=== PATIENT | female | born 1990 | race Caucasian/White ===

== ENCOUNTER 2016-09-18 17:18 | Emergency (ER) | payer SELFPAY ==
[~2016-09-18] VITALS: Ht 165.1 cm; Wt 76.0 kg
[~2016-09-18 17:18] MED LIST: IBUP800T PO; ONDA4TAB7 PO; OXYC-302 PO; PNV11TAB PO
[2016-09-18] MEDS ORDERED: SODIUM CHLORIDE FLUSH 10ML SYR IVF ONE (18:30)
[2016-09-18] MEDS ORDERED: LORazepam 2 MG/ML, 1ML IVPush ONE (18:30)
[2016-09-18 19:02] LABS: HEMOGLOBIN 13.6 g/dL (11.7-16.4)
[2016-09-18 19:14] LABS: ASPARTATE AMINO TRANSFERASE 7 U/L (15-37); BLOOD UREA NITROGEN 10 mg/dL (7-18)
[2016-09-18 19:19] LABS: IS PT STATUS REG ER OR PRE ER? YES
[2016-09-18] MEDS ORDERED: DIAZEPAM 5 MG TABLET PO ONE (20:30)
[2016-09-18] MEDS ORDERED: KETOROLAC 30 MG/1 ML IM ONE (20:30)
[2016-09-18] MEDS ORDERED: DIAZEPAM 5 MG TABLET ONE (20:38)
[2016-09-18] MEDS ORDERED: KETOROLAC 30 MG/1 ML ONE (20:38)
[2016-09-18 21:35] VITALS: BP 101/50
== END 2016-09-18 21:37 | disposition home or self-care (01) ==
LOC: ED 21:29
DX: R55 Syncope and collapse (principal); S30.0XXA Contusion of lower back and pelvis, initial encounter; R53.1 Weakness; W10.9XXA Fall (on) (from) unspecified stairs and steps, initial encounter; Y93.89 Activity, other specified; Y99.8 Other external cause status; Y92.89 Other specified places as the place of occurrence of the external cause
CPT/HCPCS: 36415; 72110; 72220; 80053; 84484; 84703; 85025; 93005; 96372; 99285; J1885

== ENCOUNTER 2018-03-28 16:51 | Emergency (ER) | payer MEDICAID ==
[~2018-03-28] VITALS: Ht 165.1 cm; Wt 60.0 kg
[~2018-03-28 16:51] MED LIST changes: +IBUP-1223 PO; -IBUP800T PO
[2018-03-28 17:30] VITALS: BP 126/83
[2018-03-28 17:34] LABS: BASOPHILS # (AUTO) 0.03 x10^3/uL (0-0.1); BASOPHILS % (AUTO) 0 % (0-1); EOSINOPHILS # (AUTO) 0.06 x10^3/uL (0-0.4); EOSINOPHILS % (AUTO) 1 % (1-7); LYMPHOCYTES # (AUTO) 2.67 x10^3/uL (1-3.4); LYMPHOCYTES % (AUTO) 38 % (22-44); MD NO; MEAN CORPUSCULAR HEMOGLOBIN 28.9 pg (27.0-34.8); MEAN CORPUSCULAR HGB CONC 33.1 g/dL (32.4-35.8); MEAN CORPUSCULAR VOLUME 87.3 fL (80-100); MEAN PLATELET VOLUME 8.3 fL (7.4-10.4); MONOCYTES # (AUTO) 0.44 x10^3/uL (0.2-0.8); MONOCYTES % (AUTO) 6 % (2-9); NEUTROPHILS # (AUTO) 3.76 x10^3/uL (1.8-6.8); NEUTROPHILS % (AUTO) 54 % (42-75); PLATELET COUNT 266 x10^3/uL (130-400); RED BLOOD COUNT 4.65 x10^6/uL (3.82-5.3); RED CELL DISTRIBUTION WIDTH 14.2 % (9.6-15.2)
[2018-03-28 17:43] LABS: ANION GAP 10 mmol/L (5-15); CALCIUM 8.7 mg/dL (8.5-10.1); CHLORIDE 110 mmol/L (98-107); CREATININE 0.97 mg/dL (0.55-1.02); SALICYLATE LEVEL 4.7 mg/dL (2.8-20.0)
[2018-03-28 17:44] LABS: ACETAMINOPHEN < 2 mcg/mL (10-30)
== END 2018-03-28 18:22 | disposition left against medical advice (07) ==
LOC: ED 18:15
DX: F43.0 Acute stress reaction (principal); Z86.73 Personal history of transient ischemic attack (TIA), and cerebral infarction without residual deficits
CPT/HCPCS: 36415; 80048; 80307; 80329; 82040; 82140; 85025; 99284; G0480

== ENCOUNTER 2018-04-27 09:11 | Emergency (ER) | payer MEDICAID ==
[~2018-04-27] VITALS: Ht 165.1 cm; Wt 65.0 kg
[2018-04-27] MEDS ORDERED: OMNIPAQUE 350 MG/ML, 100ML BOTTLE ONE (10:29)
[2018-04-27 10:37] LABS: BASOPHILS # (AUTO) 0.02 x10^3/uL (0-0.1); BASOPHILS % (AUTO) 0 % (0-1); EOSINOPHILS # (AUTO) 0.08 x10^3/uL (0-0.4); EOSINOPHILS % (AUTO) 1 % (1-7); LYMPHOCYTES # (AUTO) 1.27 x10^3/uL (1-3.4); LYMPHOCYTES % (AUTO) 20 % (22-44); MD NO; MEAN CORPUSCULAR HEMOGLOBIN 28.1 pg (27.0-34.8); MEAN CORPUSCULAR HGB CONC 32.6 g/dL (32.4-35.8); MEAN CORPUSCULAR VOLUME 86.1 fL (80-100); MEAN PLATELET VOLUME 7.4 fL (7.4-10.4); MONOCYTES # (AUTO) 0.31 x10^3/uL (0.2-0.8); MONOCYTES % (AUTO) 5 % (2-9); NEUTROPHILS # (AUTO) 4.62 x10^3/uL (1.8-6.8); NEUTROPHILS % (AUTO) 73 % (42-75); PLATELET COUNT 293 x10^3/uL (130-400); RED BLOOD COUNT 4.32 x10^6/uL (3.82-5.3)
[2018-04-27 10:46] LABS: INTERNATIONAL NORMALIZED RATIO 0.96 (0.93-1.1); PROTHROMBIN TIME 9.9 Seconds (9.6-11.5)
[2018-04-27 12:32] VITALS: BP 123/71
== END 2018-04-27 12:36 ==
LOC: ED 11:11
DX: R51 Headache (principal); R53.1 Weakness; F17.200 Nicotine dependence, unspecified, uncomplicated; Z86.73 Personal history of transient ischemic attack (TIA), and cerebral infarction without residual deficits
CPT/HCPCS: 70450; 70496; 70498; 80047; 82962; 85025; 85610; 85730; 93005; 99285; Q9967

== ENCOUNTER 2018-05-25 19:03 | Emergency (ER) | payer MEDICAID ==
[~2018-05-25] VITALS: Ht 165.1 cm; Wt 66.5 kg
[2018-05-25 19:06] VITALS: BP 119/89
[2018-05-25] MEDS ORDERED: LAMO200T3 PO (19:10)
[2018-05-25] MEDS ORDERED: ZOLOFT (19:10)
== END 2018-05-25 19:34 | disposition left against medical advice (07) ==
LOC: ED 19:28
DX: M54.9 Dorsalgia, unspecified (principal); Z53.21 Procedure and treatment not carried out due to patient leaving prior to being seen by health care provider

== ENCOUNTER 2019-08-28 15:11 | Emergency (ER) | payer MEDICAID ==
[~2019-08-28] VITALS: Ht 165.1 cm; Wt 74.6 kg
[~2019-08-28 15:11] MED LIST changes: +LAMO200T3 PO; +ZOLOFT
--- NOTE | 2019-08-28 15:45 | NUR ---
PT AMBULATED BACK TO ROOM WITHOUT DIFFICULTY. FRIEND AT BS.
--- NOTE | 2019-08-28 15:56 | NUR ---
PT HAS MULTIPLE COMPLAINTS. C/O TIGHTNESS/"LUMPS" TO R POSTERIOR UPPER LEG. FABIAN REPORTS SHE HAD "REALLY BAD SEIZURE TWO WEEKS AGO", AND EVER SINCE THEN HER TREMORS/TWITCHES AND NEUROLOGICAL SYMPTOMS 7 "HER RAGE" HAVE BEEN WORSE. FABIAN ALSO CONCERNED ABOUT HER OVARIAN CYSTS & ENDOMETRIOSIS, STATES HER ABDOMEN "GETS REALLY BIG" SOMETIMES WITH ALL HER CYSTS. ERP AT NOW.
[2019-08-28] MEDS ORDERED: LAMO100T5 PO (16:01)
[2019-08-28] MEDS ORDERED: BUPR1FIL3 SL (16:02)
[2019-08-28] MEDS ORDERED: SERT100T PO (16:02)
--- NOTE | 2019-08-28 16:22 | NUR ---
PT TO US VIA [facility].
[2019-08-28 16:25] LABS: BASOPHILS # (AUTO) 0.06 x10^3/uL (0-0.1); BASOPHILS % (AUTO) 1 % (0-1); EOSINOPHILS # (AUTO) 0.11 x10^3/uL (0-0.4); EOSINOPHILS % (AUTO) 1 % (1-7); LYMPHOCYTES # (AUTO) 2.73 x10^3/uL (1-3.4); LYMPHOCYTES % (AUTO) 32 % (22-44); MD NO; MEAN CORPUSCULAR HEMOGLOBIN 29.4 pg (27.0-34.8); MEAN CORPUSCULAR HGB CONC 33.6 g/dL (32.4-35.8); MEAN CORPUSCULAR VOLUME 87.5 fL (80-100); MONOCYTES # (AUTO) 0.45 x10^3/uL (0.2-0.8); MONOCYTES % (AUTO) 5 % (2-9); NEUTROPHILS % (AUTO) 61 % (42-75); PLATELET COUNT 285 x10^3/uL (130-400); RED BLOOD COUNT 4.66 x10^6/uL (3.82-5.3); RED CELL DISTRIBUTION WIDTH 14.3 % (9.6-15.2)
[2019-08-28 16:39] LABS: ALANINE AMINOTRANSFERASE 25 U/L (12-78); ALBUMIN 4.1 g/dL (3.4-5.0); ANION GAP 7 mmol/L (5-15); CALCIUM 9.1 mg/dL (8.5-10.1); CHLORIDE 110 mmol/L (98-107); CREATININE 0.89 mg/dL (0.55-1.02)
[2019-08-28 16:41] LABS: ALKALINE PHOSPHATASE 100 U/L (45-117); BILIRUBIN,TOTAL 0.1 mg/dL (0.2-1.0); CREATINE KINASE, TOTAL 98 U/L (26-192); TOTAL PROTEIN 7.5 g/dL (6.4-8.2)
[2019-08-28 16:45] LABS: MICROSCOPIC NOT IND
[2019-08-28 16:47] LABS: CULTURE INDICATED? NO
--- NOTE | 2019-08-28 16:50 | NUR ---
PT TO CT VIA [facility].
[2019-08-28 16:57] LABS: AMPHETAMINE SCREEN, URINE Negative (Negative); BARBITURATE SCREEN, URINE Negative (Negative); BENZODIAZEPINE SCREEN, URINE Positive (Negative); CANNABINOID SCREEN, URINE Positive (Negative); COCAINE SCREEN, URINE Negative (Negative); METHADONE SCREEN, URINE Negative (Negative); OPIATE SCREEN, URINE Negative (Negative)
--- NOTE | 2019-08-28 17:01 | NUR ---
REPORTED TO ALIVIA PICKETT.
--- NOTE | 2019-08-28 17:03 | NUR ---
Report from miguel ángel Castillo. Pt remains in CT scan at this time.
[2019-08-28 17:05] VITALS: BP 114/73
--- NOTE | 2019-08-28 18:04 | NUR ---
PT AMBULATES WELL AROUND ROOM. ANXIOUS TO LEAVE. PT ENCOURAGED TO REST UNTIL RECHECK. PARTNER AT BEDSIDE.
== END 2019-08-28 18:49 | disposition home or self-care (01) ==
LOC: ED 18:00
DX: G40.319 Generalized idiopathic epilepsy and epileptic syndromes, intractable, without status epilepticus (principal); M79.661 Pain in right lower leg
CPT/HCPCS: 36415; 70450; 76830; 80053; 80307; 81003; 82550; 83735; 85025; 99285

== ENCOUNTER 2020-12-13 22:46 | Emergency (ER) | payer MEDICAID ==
[~2020-12-13] VITALS: Ht 165.1 cm; Wt 95.7 kg
[~2020-12-13 22:46] MED LIST changes: +BUPR1FIL3 SL; +LAMO100T5 PO; -OXYC-302 PO; +OXYC1TAB14 PO; +SERT100T PO
[2020-12-13 22:56] VITALS: BP 126/86
--- NOTE | 2020-12-13 23:07 | NUR ---
forepart rasper: PAIGE collected and sent to lab.
[2020-12-13 23:14] LABS: MICROSCOPIC AUTO
[2020-12-13 23:43] LABS: BASOPHILS % (AUTO) 0 % (0-1); EOSINOPHILS % (AUTO) 2 % (1-7); LYMPHOCYTES % (AUTO) 31 % (22-44); MEAN CORPUSCULAR HEMOGLOBIN 28.7 pg (27.0-34.8); MEAN CORPUSCULAR HGB CONC 32.6 g/dL (32.4-35.8); MEAN PLATELET VOLUME 8.1 fL (7.4-10.4); MONOCYTES % (AUTO) 7 % (2-9); NEUTROPHILS % (AUTO) 60 % (42-75); PLATELET COUNT 241 x10^3/uL (130-400); RED BLOOD COUNT 5.16 x10^6/uL (3.82-5.3)
[2020-12-13 23:57] LABS: ANION GAP 6 mmol/L (5-15); CALCIUM 9.3 mg/dL (8.5-10.1); CHLORIDE 111 mmol/L (98-107); CREATININE 0.85 mg/dL (0.55-1.02)
== END 2020-12-14 00:23 | disposition left against medical advice (07) ==
LOC: ED 23:00
DX: R10.31 Right lower quadrant pain (principal); R11.2 Nausea with vomiting, unspecified
CPT/HCPCS: 36415; 80048; 81001; 84703; 85025; 87077; 87086; 99283

== ENCOUNTER 2021-02-19 18:12 | Emergency (ER) | payer MEDICAID ==
[~2021-02-19] VITALS: Ht 165.1 cm; Wt 100.6 kg
--- NOTE | 2021-02-19 19:02 | NUR ---
pt c/o of nausea, vomitting, swollen right foot, headaches, back pain, ovarian pain, bilateral flank. pt attached to monitors, vss. nadn. bed in low position, rails engaged. call light on lap. hx of ovarian cysts, and endometriosis. reports pain when walking.
[2021-02-19] MEDS ORDERED: KETOROLAC 30 MG/1 ML ONE (19:16)
[2021-02-19] MEDS ORDERED: KETOROLAC 60 MG/2 ML ONE (19:18)
[2021-02-19 19:30] LABS: MICROSCOPIC INDICATED
[2021-02-19] MEDS ORDERED: KETOROLAC 30 MG/1 ML IM ONE (19:30)
[2021-02-19 20:04] VITALS: BP 130/76
--- NOTE | 2021-02-19 20:06 | NUR ---
Patient is resting comfortably in bed. Bed in lowest, rails engaged, call light on lap. Vital Signs within normal limits. [facility]. 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
[2021-02-19 20:16] LABS: BASOPHILS % (AUTO) 1 % (0-1); EOSINOPHILS % (AUTO) 3 % (1-7); LYMPHOCYTES % (AUTO) 31 % (22-44); MEAN CORPUSCULAR HEMOGLOBIN 28.8 pg (27.0-34.8); MEAN CORPUSCULAR HGB CONC 33.4 g/dL (32.4-35.8); MEAN PLATELET VOLUME 8.2 fL (7.4-10.4); MONOCYTES % (AUTO) 7 % (2-9); NEUTROPHILS % (AUTO) 59 % (42-75); PLATELET COUNT 272 x10^3/uL (130-400); RED BLOOD COUNT 4.81 x10^6/uL (3.82-5.3); RED CELL DISTRIBUTION WIDTH 14.3 % (9.6-15.2)
[2021-02-19 20:28] LABS: ALANINE AMINOTRANSFERASE 33 U/L (12-78); ALBUMIN 3.2 g/dL (3.4-5.0); ANION GAP 6 mmol/L (5-15); CALCIUM 9.1 mg/dL (8.5-10.1); CHLORIDE 108 mmol/L (98-107); CREATININE 0.79 mg/dL (0.55-1.02)
[2021-02-19 20:32] LABS: ALKALINE PHOSPHATASE 73 U/L (45-117); BILIRUBIN,TOTAL 0.1 mg/dL (0.2-1.0); TOTAL PROTEIN 7.1 g/dL (6.4-8.2)
== END 2021-02-19 21:08 | disposition home or self-care (01) ==
LOC: ED 20:00
DX: N83.291 Other ovarian cyst, right side (principal); R10.2 Pelvic and perineal pain; F17.200 Nicotine dependence, unspecified, uncomplicated
CPT/HCPCS: 36415; 76770; 76830; 80053; 81001; 84703; 85025; 96372; 99285; J1885